=== PATIENT | male | born 1950 | race Caucasian/White ===

== ENCOUNTER 2023-11-21 21:36 | Emergency (ER) | payer MEDICARE ==
[2023-11-21] MEDS ORDERED: cefTRIAXone 1 GM, Lidocaine 1% 2.1 ML IM ONE ×2 (22:16)
[2023-11-21 22:27] LABS: BASOPHILS ABSOLUTE AUTO 0.06 K/uL (0.00-0.10); BASOPHILS PERCENT AUTO 0.5 % (0.1-1.3); EOSINOPHILS ABSOLUTE AUTO 0.16 K/uL (0.00-0.40); EOSINOPHILS PERCENT AUTO 1.4 % (0.0-5.4); HEMOGLOBIN 14.4 g/dL (12.9-16.9); IMMATURE GRAN ABSOLUTE AUTO 0.04 K/uL (0.00-0.23); IMMATURE GRAN PERCENT AUTO 0.3 % (0.0-0.7); LYMPHOCYTES ABSOLUTE AUTO 2.11 K/uL (0.8-3.3); LYMPHOCYTES PERCENT AUTO 18.1 % (11.4-47.7); MEAN CORPUSCULAR HGB CONC 33.5 g/dL (31.6-35.5); MEAN CORPUSCULAR VOLUME 92.7 fL (81.4-99.0); MONOCYTES ABSOLUTE AUTO 0.75 K/uL (0.20-0.90); MONOCYTES PERCENT AUTO 6.4 % (3.3-12.6); NEUTROPHILS ABSOLUTE AUTO 8.53 K/uL (1.0-7.6); NEUTROPHILS PERCENT AUTO 73.3 % (40.0-78.1); PLATELET COUNT,PLT 167 K/uL (130-375); RED BLOOD CELL COUNT 4.64 M/uL (4.14-5.76); WHITE BLOOD CELL COUNT,WBC 11.7 K/uL (3.2-11.0)
[2023-11-21 22:42] LABS: ANION GAP 7.9 mmol/L (5.0-14.0); BLOOD UREA NITROGEN,BUN 23 mg/dL (7-18); CALCIUM 8.6 mg/dL (8.5-10.1); CARBON DIOXIDE,CO2 30 mmol/L (21-32); CHLORIDE,CL 102 mmol/L (100-108); EST CRCL DRUG DOSING (CG) 73.29 mL/min; ESTIMATED GFR 80 mL/min (>60); GLUCOSE RANDOM 158 mg/dL (74-106); SODIUM,NA 140 mmol/L (140-148)
[2023-11-21 22:43] LABS: C-REACTIVE PROTEIN < 0.50 mg/dL (<0.50)
== END 2023-11-21 23:00 | disposition home or self-care (01) ==
LOC: JP.ED 21:36
DX: L03.115 Cellulitis of right lower limb (principal); I10 Essential (primary) hypertension; E78.00 Pure hypercholesterolemia, unspecified; Z90.49 Acquired absence of other specified parts of digestive tract; Z86.16 Personal history of COVID-19; Z79.899 Other long term (current) drug therapy
CPT/HCPCS: 36415; 80048; 83605; 85025; 86140; 96372; 99283; J0696

== ENCOUNTER 2023-12-31 07:15 | Day surgery (SDC) | payer MEDICARE, OTHER ==
[2023-12-31] MEDS ORDERED: Propofol 200 MG/20 ML SDV ONE ×2 (07:55→09:40)
[2023-12-31] MEDS ORDERED: fentaNYL 100 MCG/2 ML SDV ONE (07:56)
[2023-12-31] MEDS ORDERED: Midazolam 1 MG/ML 2 ML SDV ONE (07:56)
[2023-12-31 08:01] LABS: ALANINE AMINOTRANSFERASE,ALT 29 U/L (12-78); ALBUMIN 3.8 g/dL (3.4-5.0); ALKALINE PHOSPHATASE 63 U/L (46-116); ANION GAP 10.6 mmol/L (5.0-14.0); ASPARTATE AMNIOTRANSFERASE,AST 23 U/L (15-37); BILIRUBIN TOTAL 1.9 mg/dL (0.2-1.0); BLOOD UREA NITROGEN,BUN 23 mg/dL (7-18); CARBON DIOXIDE,CO2 29 mmol/L (21-32); CHLORIDE,CL 101 mmol/L (100-108); CREATININE 1.1 mg/dL (0.8-1.3); ESTIMATED GFR 71 mL/min (>60); GLUCOSE RANDOM 139 mg/dL (74-106); PROTEIN TOTAL,TP 7.6 g/dL (6.4-8.2); SODIUM,NA 141 mmol/L (140-148)
[2023-12-31] MEDS: Lactated Ringers 1,000 ML IV SCH (08:05)
[2023-12-31] MEDS: Nozin Nasal Sanitizer NASBOTH ONE (08:11)
[2023-12-31] MEDS ORDERED: Bupivacaine 0.5% 50 ML MDV ONE (08:17)
[2023-12-31] MEDS: ceFAZolin 2 GM in Premix Bag 1 BAG IV ONE (09:15)
[2023-12-31] MEDS: Bupivacaine 0.5%/EPINEPHrine 1:200,000 50 ML MDV ONE (10:16)
[2023-12-31] MEDS: Acetaminophen/HYDROcodone 325-5 MG Tab PO ONE (11:18)
== END 2023-12-31 12:06 | disposition home or self-care (01) ==
LOC: JP.SDS 07:15
PROVIDERS: ATTEND Specialist
DX: M71.161 Other infective bursitis, right knee (principal); I10 Essential (primary) hypertension; F32.A Depression, unspecified; R42 Dizziness and giddiness
CPT/HCPCS: 36415; 80053; 85027; 87070; 87075; 87205; A9270-GY; J0665; J0690; J2250; J2704; J3010; J3490; J7120